=== PATIENT | female | born 1970 | race Caucasian/White ===

== ENCOUNTER 2021-03-30 18:26 | Emergency (ER) | payer OTHER ==
[~2021-03-30 18:26] MED LIST: BACTROBAN OINT22 GM EXT; CLEOCIN HCL300 MG PO; CUBICIN IV; EFFEXOR XR150 MG PO; IBUPROFEN600 MG PO; IBUPROFEN800 MG PO; LEVEMIR100 UNIT/1 SQ; MAPAP325 MG PO; NORCO 10-325 T1 EACH PO; NOVOLOG 70/30 SQ; NOVOLOG MI100 UNIT/1 SQ; VIT D PO; VITAMIN C 500500 MG PO; VITAMIN D32000 UNI1 PO
[2021-03-30 19:20] LABS: HEMOGLOBIN 14.5 gm/dl (12.3-15.3); RED BLOOD COUNT 4.68 M/UL (4.00-5.10); WHITE BLOOD COUNT 8.3 K/UL (4.5-11.0)
[2021-03-30 20:19] LABS: BUN/CREATININE RATIO 17 (0-10)
[2021-03-30] MEDS ORDERED: BACTRIM DS TAB1 EACH PO (22:26)
[2021-03-30] MEDS ORDERED: ASPIRIN81 MG PO (22:40)
[2021-03-30] MEDS ORDERED: PROVENTIL HFA6.7 GM INH (22:40)
== END 2021-03-30 22:48 | disposition home or self-care (01) ==
LOC: ER1 18:26
PROVIDERS: Physician Assistant
DX: U07.1 COVID-19 (principal); N39.0 Urinary tract infection, site not specified; E10.9 Type 1 diabetes mellitus without complications; I10 Essential (primary) hypertension; F17.210 Nicotine dependence, cigarettes, uncomplicated; Z88.1 Allergy status to other antibiotic agents
CPT/HCPCS: 0240U; 71045; 80053; 81001; 82550; 82553; 83605; 83690; 83874; 84484; 85025; 86140; 87040; 87077; 87086; 87186; 96374; 99284; J2405